=== PATIENT | male | born 1995 | race African-American/Black ===

== ENCOUNTER 2018-06-27 23:21 | Emergency (ER) | payer OTHER ==
[2018-06-27 23:25] VITALS: BP 97/73; PULSE 82; TEMP 98.3; BMI 22.4
--- NOTE | 2018-06-27 23:58 | PDOC ---
History of Present Illness - General Chief Complaint: Laceration Stated Complaint: LEFT HEAND INJURY Time Seen by Provider: 06/27/18 23:51 History Source: Patient Exam Limitations: No Limitations - History of Present Illness Initial Comments: 06/28/18 00:00 Best contact: [phone] Pmhx: N/a Surgery: 2004: right wrist sx Allergies: NKDA cigarettes: 2/d for 1 year, alcohol: social Recreational drugs: marijuana 22-year-old male who is right hand dominant presents to the ER complaining of a laceration to the dorsal aspect of his left hand. Patient states he sustained a laceration between the fourth and fifth knuckle after making contact in someone' s mouth. Bleeding controlled with direct pressure prior to his arrival. Patient denies extremity numbness or tingling sensation. Patient denies any other complaints. Unknown last tetanus. Right deltoid IM boostrix lot: [id number] Past History - Past Medical History Allergies/Adverse Reactions: Allergies Allergy/AdvReac Type Severity Reaction Status Date / Time No Known Allergies Allergy Verified 06/27/18 23:25 Home Medications: Ambulatory Orders Amoxicillin/Potassium Clav [Augmentin 875-125 Tablet] 1 each PO BID #10 tablet 06/28/18 COPD: No - Suicide/Smoking/Psychosocial Hx Smoking History: Never smoked Review of Systems - Review of Systems Able to Perform ROS?: Yes Comments:: 06/28/18 00:51 MUSCULOSKELETAL: Left dorsal hand/2.5cm vertical lac between left 4th and 5th webspace Absent: myalgia, arthralgia, joint swelling SKIN: Absent: rash, itching, pallor HEMATOLOGIC/IMMUNOLOGIC: Absent: easy bleeding, easy bruising, lymphadenopathy, frequent infections Is the patient limited Macedonian proficient: No *Physical Exam - Vital Signs Last Vital Signs Temp Pulse Resp BP Pulse Ox 98.3 F 82 18 97/73 98 06/27/18 23:22 06/27/18 23:22 06/27/18 23:22 06/27/18 23:22 06/27/18 23:22 - Physical Exam Comments: 06/28/18 00:52 GENERAL: Well developed, well nourished. Awake and alert. No acute distress. MUSCULOSKELETAL 2.5cm vertical lac to dorsal 4th and 5th webspace partial thickness wound explored on full extension and flexion/neg fx or tendon lac Normal range of motion at all joints. No bony deformities or tenderness. No CVA tenderness. EXTREMITIES: No cyanosis. No clubbing. No edema. No calf tenderness. SKIN: Warm and dry. Normal capillary refill. No rashes. No jaundice. *DC/Admit/Observation/Transfer Diagnosis at time of Disposition: Laceration of left hand Qualifiers: Encounter type: initial encounter Foreign body presence: without foreign body Qualified Code(s): S61.412A - Laceration without foreign body of left hand, initial encounter - Discharge Dispostion Condition at time of disposition: Stable Decision to Admit order: No - Prescriptions Prescriptions: Amoxicillin/Potassium Clav [Augmentin 875-125 Tablet] 1 each PO BID #10 tablet - Referrals - Patient Instructions Printed Discharge Instructions: DI for Laceration Repair -- Simple Additional Instructions: Keep the incision clean and dry for 24 hours. After 24 hours, you may allow the soap and water to rinse off your incision. Avoid direct pressure of the water to the incision. Pat the incision dry with a clean clothe. Apply a small amount of bacitracin onto the incision. Cover the incision loosely with a bandaid. Take tylenol/motrin as needed for pain. Follow up with your physician or the ER in 48 hours for a wound check. Return to the ER if you notice red streaks, increase redness/swelling/severe pain to the incision. Suture removal in 10-11 days. - Post Discharge Activity Forms/Work/School Notes: Back to Work Progress Note - Progress Note Progress Note: left hand 2.5cm vertical lac to dorsal aspect between 4th and 5th webspace Betadine prep 2 point sensation intact/sharp and dull 1% lidocaine=2cc NS irrigation/copious sterile technique/draping (3) 4.0 prolene simple interrupted bactracin bandaid
[2018-06-27] MEDS ORDERED: DIPHTH,PERTUSS(ACELL),TET 0.5 ML DISP.SYRIN IM ONE (23:59)
[2018-06-28] MEDS ORDERED: AMOX TR/POT CLAV 875MG/125MG TABLETS (FP) PO ONE (00:44)
[2018-06-28] MEDS ORDERED: AMOX TR/POT CLAV 875MG/125MG TABLETS (FP) ONE (01:03)
== END 2018-06-28 02:11 | disposition home or self-care (01) ==
LOC: JERFT 23:21 → JER 23:21 → JERFT 06-28 02:11
DX: S61.412A Laceration without foreign body of left hand, initial encounter (principal); W51.XXXA Accidental striking against or bumped into by another person, initial encounter; Y93.89 Activity, other specified; Y92.89 Other specified places as the place of occurrence of the external cause; Y99.8 Other external cause status
CPT/HCPCS: 73130-TC-LR-FY; 99281-25

== ENCOUNTER 2018-07-07 18:28 | Emergency (ER) | payer OTHER ==
--- NOTE | 2018-07-07 18:31 | PDOC ---
Rapid Medical Evaluation Time Seen by Provider: 07/07/18 18:30 Medical Evaluation: Allergies Allergy/AdvReac Type Severity Reaction Status Date / Time No Known Allergies Allergy Verified 06/27/18 23:25 07/07/18 18:30 Pt presents to the ED for suture removal from the L hand Exam:NAD. Simple interrupted sutures present to the top of the L hand Orders: Nothing Pt to proceed to the ED for further evaluation Discharge Disposition - Diagnosis Visit for suture removal - Referrals - Patient Instructions - Post Discharge Activity
[2018-07-07 18:33] VITALS: BP 141/72; PULSE 84; TEMP 99; BMI 23.1
[2018-07-07] MEDS ORDERED: AZITHROMYCIN 250 MG TABLET ONE (18:48)
--- NOTE | 2018-07-07 19:06 | PDOC ---
Suture Removal/Wound Check HPI - History of Present Illness Chief Complaint: Suture/Staple Removal(Here) Stated Complaint: Suture/Staple Removal(Here) Time Seen by Provider: 07/07/18 18:30 History Source: Yes: Patient Exam Limitations: Yes: No Limitations Treated at: [facility] ED - Previous ED Treatment Type of procedure performed on last visit: Yes: Laceration Repair Tetanus Immunization: Yes: Up to Date Past History - Past Medical History Allergies/Adverse Reactions: Allergies Allergy/AdvReac Type Severity Reaction Status Date / Time No Known Allergies Allergy Verified 06/27/18 23:25 Home Medications: Ambulatory Orders Amoxicillin/Potassium Clav [Augmentin 875-125 Tablet] 1 each PO BID #10 tablet 06/28/18 COPD: No - Suicide/Smoking/Psychosocial Hx Smoking History: Never smoked Hx Alcohol Use: No Drug/Substance Use Hx: No Substance Use Type: None *Physical Exam - Vital Signs Last Vital Signs Temp Pulse Resp BP Pulse Ox 99.0 F 84 16 141/72 97 07/07/18 18:31 07/07/18 18:31 07/07/18 18:31 07/07/18 18:31 07/07/18 18:31 - Physical Exam General Appearance: Yes: Appropriately Dressed, Apparent Distress HEENT: positive: MANNY, Normal ENT Inspection, TMs Normal, Pharynx Normal Neck: positive: Supple. negative: Tender Respiratory/Chest: positive: Lungs Clear Gastrointestinal/Abdominal: positive: Soft Musculoskeletal: positive: Normal Inspection, Other (moderate lady to well approximated suture line to left fifth digit with 3 intact sutures. Has full range of motion of fingers no redness, swelling or edema noted) Integumentary: positive: Normal Color, Other Neurologic: positive: clipping marker II-XII NML intact, Fully Oriented, Alert, Normal Mood/ Affect, Normal Response, Motor Strength 5/5 Medical Decision Making - Medical Decision Making 07/07/18 19:05 3 sutures removed without incident, Steri-Strips applied to ad reinforcement until wound completely approximated. Patient encouraged to avoid strenuous activity or heavy lifting until well repaired. *DC/Admit/Observation/Transfer Diagnosis at time of Disposition: Visit for suture removal - Discharge Dispostion Disposition: HOME Condition at time of disposition: Stable Decision to Admit order: No - Referrals - Patient Instructions Printed Discharge Instructions: DI for Suture Removal - Post Discharge Activity
== END 2018-07-07 19:08 | disposition home or self-care (01) ==
LOC: JERFT 18:28
DX: Z48.817 Encounter for surgical aftercare following surgery on the skin and subcutaneous tissue (principal); Z48.02 Encounter for removal of sutures
CPT/HCPCS: 99281-25